=== PATIENT | male | born 1940 | race Caucasian/White ===

== ENCOUNTER 2017-01-14 07:22 | Day surgery (SDC) | payer OTHER ==
[2017-01-08 11:12] VITALS: BMI 30.9
[2017-01-14] MEDS ORDERED: PROPOFOL 20 ML ONE ×2 (07:24)
[2017-01-14 09:14] VITALS: TEMP 97.8
[2017-01-14 09:32] VITALS: BP 135/82; PULSE 81
== END 2017-01-14 10:25 | disposition home or self-care (01) ==
LOC: FASU-ENDO 07:22
PROVIDERS: ATTEND Internal Medicine Gastroenterology
PROC: 0DJD8ZZ Inspection of Lower Intestinal Tract, Via Natural or Artificial Opening Endoscopic (ICD-10-PCS; principal; 2017-01-14 08:37)
DX: Z86.010 Personal history of colon polyps (principal)